=== PATIENT | female | born 1960 | race Caucasian/White ===

== ENCOUNTER 2017-02-16 02:38 | Emergency (ER) | payer OTHER ==
[~2017-02-16] VITALS: Ht 165.1 cm; Wt 85.4 kg
[~2017-02-16 02:38] MED LIST: ALEVE220 MG PO; ASPIR-LOW81 MG PO; EX-LAX15 MG PO; HYDROCHLOROTHIA25 MG PO; LOTENSIN40 MG PO
[2017-02-16 03:13] LABS: HEMATOCRIT 36.7 % (36.0-46.0); MCH 30.9 PG (29.0-34.0); MCHC 33.5 G/DL (30.0-36.0); MCV 92.2 FL (83-99); MEAN PLAT.VOLUME 10.5 uM^3 (9.5-12.4); PLATELET COUNT 212 K/uL (156-360); RBC DIS.WIDTH-CV 12.7 % (11.8-14.6); RBC DIS.WIDTH-SD 43.4 % (39-53); RED BLOOD COUNT 3.98 M/uL (3.80-5.20); WHITE BLOOD COUNT 7.5 K/uL (4.1-10.2)
[2017-02-16 03:24] LABS: CHLORIDE 105 mEq/L (99-109); POTASSIUM 3.5 mEq/L (3.7-5.4); SODIUM 139 mEq/L (136-147)
[2017-02-16 03:26] LABS: GLUCOSE 125 mg/dL (70-99)
[2017-02-16 03:27] LABS: ANION GAP 8 MEQ/L (2-14)
[2017-02-16 03:30] LABS: GFR ESTIMATE (CALCULATED) > 59 mL/min/
[2017-02-16 03:31] LABS: UREA NITROGEN (BUN) 14 mg/dL (9-23)
[2017-02-16 03:38] LABS: TROP-I INTERPRETATION NEGATIVE; TROPONIN-I < 0.01 ng/mL (0.0-0.30)
[2017-02-16 06:41] VITALS: BP 107/73
== END 2017-02-16 06:45 | disposition short-term general hospital (02) ==
LOC: EME → EDBD 02:38 → EME 06:45
PROVIDERS: Emergency Medicine
DX: S02.31XA Fracture of orbital floor, right side, initial encounter for closed fracture (principal); S05.01XA Injury of conjunctiva and corneal abrasion without foreign body, right eye, initial encounter; R55 Syncope and collapse; W19.XXXA Unspecified fall, initial encounter; I10 Essential (primary) hypertension
CPT/HCPCS: 70450; 70486; 80048; 84484; 85027; 93005; 99281; 99285; J2405; J7030